=== PATIENT | male | born 2000 | race Caucasian/White ===

== ENCOUNTER 2021-02-15 09:50 | Emergency (ER) | payer BC ==
[2021-02-15 10:48] VITALS: O2SAT 98
[2021-02-15] MEDS ORDERED: Sodium Chloride 0.9% 1000 ML 1,000 ML IV STA (11:08)
[2021-02-15] MEDS ORDERED: Zofran 4 MG/2 ML VIAL IV ONE (11:08)
[2021-02-15] MEDS ORDERED: ANTIVERT 25 MG PO ONE (11:08)
[2021-02-15] MEDS ORDERED: Zofran 4 MG/2 ML VIAL ONE (11:23)
[2021-02-15 11:24] LABS: Absolute Neutrophil Ct (ANC) 2.46 (1.4-6.9); BASOPHIL % 0.4 % (0.0-0.4); Basophil (Absolute #) 0.02 (0-0.4); Eosinophil (Absolute #) 0.59 (0-0.5); Hematocrit 41.2 % (42-50); Hemoglobin 13.6 gm/dl (12.5-18.0); Lymphocyte (Absolute #) 1.86 (1.0-4.6); Lymphocytes % 34.8 % (24.0-44.0); Mean Cell Volume 83.6 fl (78-100); Mean Corpuscular Hemoglobin 27.6 pg (26-32); Mean Platelet Volume 9.5 fl (7.5-11.0); Monocyte (Absolute #) 0.41 (0.0-1.3); Monocytes % 7.7 % (0.0-12.0); Neutrophil % 46.1 % (36.0-66.0); Platelet Count 324 K/mm3 (150-450); Red Blood Count 4.93 M/mm3 (4.1-5.6); Red Cell Distribution Width 13.5 % (11.5-14.0); White Blood Count 5.3 K/mm3 (4.0-10.5)
[2021-02-15] MEDS ORDERED: Sodium Chloride 0.9% 1000 ML 1,000 ML ONE (11:24)
[2021-02-15] MEDS ORDERED: ANTIVERT 25 MG ONE (11:24)
[2021-02-15 11:39] LABS: ALBUMIN 4.3 g/dL (3.5-5.0); ALKALINE PHOSPHATASE 46 U/L (38-126); ANION GAP 12.5 MEQ/L (5-15); BLOOD UREA NITROGEN 13 mg/dL (9-20); CHLORIDE 105 mmol/L (98-107); Calcium 8.8 mg/dL (8.4-10.2); Carbon Dioxide 27 mmol/L (22-30); Creatinine 1 0.93 mg/dL (0.66-1.25); EST GLOMERULAR FILTRATION RATE > 60.0 ML/MIN; Glucose 94 mg/dL (74-106); MAGNESIUM 2.1 mg/dL (1.6-2.3); Potassium 4.4 mmol/L (3.5-5.1); SGOT/AST 21 U/L (17-59); SGPT/ALT 24 U/L (0-50); SODIUM 140 mmol/L (137-145); Total Protein 6.9 g/dL (6.3-8.2)
--- NOTE | 2021-02-15 11:41 | ERPHSYRPT ---
- History of Present Illness Time Seen by Provider: 02/15/21 10:31 Source: patient Exam Limitations: no limitations Patient Subjective Stated Complaint: Pt states that 2 days ago he passed out in the bathroom after he was done with his business and yesterday he had a migra ine, and he has diarrhea, shakiness, dizziness, cold, fingers and toes tingling Triage Nursing Assessment: Pt drove self to the ER, vitals wnl, rates head pain as 3/10, nauseous, denies vomiting today, pulses normal, A&O x3, skin n/w/d, doesn't appear to be in any distress Physician History: 20 years old healthy male presented in the ER with chief complaint of syncopal episode 2 days ago when he woke up and was walking in the bathroom and. It was brief for few seconds with unknown injury to the head. Patient reports generalized weakness since then followed by nausea, feeling dizzy lightheaded and weak all over. Patient reports earlier he was driving to work and started to feel dizzy while driving, pulled on the side until his dizziness spell was over. Reports room spinning sensation of surroundings. Denies any focal numbness or weakness but has some tingling sensation in the fingers. Denies visual disturbance, difficulty speech. Denies any chest pain palpitations or shortness of breath. Does have chronic issues with abdominal pain off and on, and vomiting diarrhea with lactose intolerance. He also reports having multiple episodes of vomiting yesterday and loose stool as well. Patient feels he is dehydrated although he is trying to keep up with his fluids. Timing/Duration: gradual onset, worse Severity: moderate Associated Symptoms: nausea, vomiting, chills, malaise, syncope, weakness, No abdominal pain Allergies/Adverse Reactions: No Known Drug Allergies Allergy (Verified 02/15/21 10:48) Travel Risk - International Travel Have you traveled outside of the country in past 3 weeks: No - Coronavirus Screening Are you exhibiting any of the following symptoms?: No Close contact with a COVID-19 positive Pt in past 14-21 Days: No - Vaccine Status Have you recieved a Covid-19 vaccination: No - Review of Systems Constitutional: Chills, Fatigue, Weakness Eyes: No Symptoms Ears, Nose, & Throat: No Symptoms Respiratory: No Symptoms Cardiac: No Symptoms Abdominal/Gastrointestinal: Nausea, Vomiting, Diarrhea Genitourinary Symptoms: No Symptoms Musculoskeletal: Myalgias Neurological: Dizziness, Headache Psychological: No Symptoms Endocrine: No Symptoms Hematologic/Lymphatic: No Symptoms Immunological/Allergic: No Symptoms - Past Medical History Pertinent Past Medical History: Yes Neurological History: No Pertinent History Cardiac History: No Pertinent History Respiratory History: Asthma Endocrine Medical History: No Pertinent History Musculoskeletal History: No Pertinent History Other Medical History: L knee scope - Past Surgical History Gastrointestinal: Appendectomy Other Surgical History: darius feet, darius knees - Social History Smoking Status: Never smoker Exposure to second hand smoke: Yes Drug Use: none Patient Lives Alone: No - Nursing Vital Signs Nursing Vital Signs: Initial Vital Signs Temperature 97.6 F 02/15/21 10:34 Pulse Rate 74 02/15/21 10:34 Respiratory Rate 17 02/15/21 10:34 Blood Pressure 108/73 02/15/21 10:34 O2 Sat by Pulse Oximetry 98 02/15/21 10:34 Pain Scale Pain Intensity 3 - Physical Exam General Appearance: no apparent distress, alert, anxiety Eye Exam: PERRL/EOMI, eyes nml inspection Ears, Nose, Throat Exam: normal ENT inspection, TMs normal, pharynx normal Neck Exam: normal inspection, non-tender, supple, full range of motion Respiratory Exam: normal breath sounds, lungs clear Cardiovascular Exam: regular rate/rhythm, normal heart sounds Gastrointestinal/Abdomen Exam: soft, normal bowel sounds, No tenderness Back Exam: normal inspection, normal range of motion, No CVA tenderness Extremity Exam: normal inspection, normal range of motion, pelvis stable Neurologic Exam: alert, oriented x 3, cooperative, certified physician assistant II-XII nml as tested, normal mood/affect, nml cerebellar function, nml station & gait, sensation nml, No motor deficits, No sensory deficit Skin Exam: normal color SpO2 Interpretation: normal SpO2: 98 O2 Delivery: Room Air Ordered Tests: Active Orders 24 hr Category Date Time Status EKG-ER Only STAT Care 02/15/21 11:08 Active IV Insertion STAT Care 02/15/21 11:08 Active Orthostatic Vital Signs STAT Care 02/15/21 11:08 Active CHEST 1 VIEW (PORTABLE) Stat Exams 02/15/21 11:09 Completed HEAD WITHOUT CONTRAST [CT] Stat Exams 02/15/21 11:09 Completed CBC W DIFF Stat Lab 02/15/21 11:22 Completed CMP Stat Lab 02/15/21 11:22 Completed Lactic Acid Stat Lab 02/15/21 11:08 Completed MAGNESIUM Stat Lab 02/15/21 11:22 Completed TROPONIN Q3H Lab 02/15/21 11:22 Completed TROPONIN Q3H Lab 02/15/21 14:15 Ordered TROPONIN Q3H Lab 02/15/21 17:15 Ordered TROPONIN Q3H Lab 02/15/21 20:15 Ordered TROPONIN Q3H Lab 02/15/21 23:15 Ordered UA W/RFX UR CULTURE Stat Lab 02/15/21 12:08 Received Urine Triage Profile Stat Lab 02/15/21 12:08 Received Medication Summary Discontinued Medications Generic Name Dose Route Start Last Admin Trade Name Freq PRN Reason Stop Dose Admin Sodium Chloride 1,000 mls @ 999 mls/hr 02/15/21 11:08 02/15/21 12:58 Sodium Chloride 0.9% 1000 Ml IV 02/15/21 12:08 Infused .Q1H1M STA Infusion Sodium Chloride Confirm 02/15/21 11:24 Sodium Chloride 0.9% 1000 Ml Administered 02/15/21 11:25 Dose 1,000 mls @ ud .ROUTE .STK-MED ONE Meclizine HCl 25 mg 02/15/21 11:08 02/15/21 11:30 Antivert 25 Mg PO 02/15/21 11:09 25 mg STAT ONE Administration Meclizine HCl Confirm 02/15/21 11:24 Antivert 25 Mg Administered 02/15/21 11:25 Dose 25 mg .ROUTE .STK-MED ONE Ondansetron HCl 4 mg 02/15/21 11:08 02/15/21 11:28 Zofran 4 Mg/2 Ml Vial IV 02/15/21 11:09 4 mg STAT ONE Administration Ondansetron HCl Confirm 02/15/21 11:23 Zofran 4 Mg/2 Ml Vial Administered 02/15/21 11:24 Dose 4 mg .ROUTE .STK-MED ONE Lab/Rad Data: Laboratory Result Diagrams 02/15/21 11:22 02/15/21 11:22 Laboratory Results 02/15/21 02/15/21 02/15/21 Range/Units 11:22 11:22 11:22 WBC 5.3 (4.0-10.5) K/mm3 RBC 4.93 (4.1-5.6) M/mm3 Hgb 13.6 (12.5-18.0) gm/dl Hct 41.2 L (42-50) % MCV 83.6 (78-100) fl MCH 27.6 (26-32) pg MCHC 33.0 (32-36) g/dl RDW 13.5 (11.5-14.0) % Plt Count 324 (150-450) K/mm3 MPV 9.5 (7.5-11.0) fl Gran % 46.1 (36.0-66.0) % Eos # (Auto) 0.59 H (0-0.5) Absolute Lymphs (auto) 1.86 (1.0-4.6) Absolute Monos (auto) 0.41 (0.0-1.3) Lymphocytes % 34.8 (24.0-44.0) % Monocytes % 7.7 (0.0-12.0) % Eosinophils % 11.0 H (0.00-5.0) % Basophils % 0.4 (0.0-0.4) % Absolute Granulocytes 2.46 (1.4-6.9) Basophils # 0.02 (0-0.4) Sodium 140 (137-145) mmol/L Potassium 4.4 (3.5-5.1) mmol/L Chloride 105 (98-107) mmol/L Carbon Dioxide 27 (22-30) mmol/L Anion Gap 12.5 (5-15) MEQ/L BUN 13 (9-20) mg/dL Creatinine 0.93 (0.66-1.25) mg/dL Estimated GFR > 60.0 ML/MIN Glucose 94 (74-106) mg/dL Lactic Acid (0.4-2.0) Calcium 8.8 (8.4-10.2) mg/dL Magnesium 2.1 (1.6-2.3) mg/dL Total Bilirubin 0.40 (0.2-1.3) mg/dL AST 21 (17-59) U/L ALT 24 (0-50) U/L Alkaline Phosphatase 46 (38-126) U/L Troponin I < 0.012 (0.000-0.034) ng/mL Serum Total Protein 6.9 (6.3-8.2) g/dL Albumin 4.3 (3.5-5.0) g/dL 02/15/21 Range/Units 11:08 WBC (4.0-10.5) K/mm3 RBC (4.1-5.6) M/mm3 Hgb (12.5-18.0) gm/dl Hct (42-50) % MCV (78-100) fl MCH (26-32) pg MCHC (32-36) g/dl RDW (11.5-14.0) % Plt Count (150-450) K/mm3 MPV (7.5-11.0) fl Gran % (36.0-66.0) % Eos # (Auto) (0-0.5) Absolute Lymphs (auto) (1.0-4.6) Absolute Monos (auto) (0.0-1.3) Lymphocytes % (24.0-44.0) % Monocytes % (0.0-12.0) % Eosinophils % (0.00-5.0) % Basophils % (0.0-0.4) % Absolute Granulocytes (1.4-6.9) Basophils # (0-0.4) Sodium (137-145) mmol/L Potassium (3.5-5.1) mmol/L Chloride (98-107) mmol/L Carbon Dioxide (22-30) mmol/L Anion Gap (5-15) MEQ/L BUN (9-20) mg/dL Creatinine (0.66-1.25) mg/dL Estimated GFR ML/MIN Glucose (74-106) mg/dL Lactic Acid 1.0 (0.4-2.0) Calcium (8.4-10.2) mg/dL Magnesium (1.6-2.3) mg/dL Total Bilirubin (0.2-1.3) mg/dL AST (17-59) U/L ALT (0-50) U/L Alkaline Phosphatase (38-126) U/L Troponin I (0.000-0.034) ng/mL Serum Total Protein (6.3-8.2) g/dL Albumin (3.5-5.0) g/dL - Progress Progress: improved, re-examined Progress Note: 02/15/21 13:55 20 years old is evaluated for dizziness/lightheadedness after having a syncopal episode with a fall. Nonfocal neuro exam throughout stay in the ER. EKG showed sinus rhythm with no acute ST elevations. Negative troponin, unremarkable chemistries. Chest x-ray negative. I have obtained CT head because of his fall and syncopal episode and is negative. I believe patient did hit his head with the fall and has postconcussion symptoms. Also some element of vertigo peripheral but not central. Patient has chronic nausea vomiting and diarrhea, w ill give Zofran for symptomatic relief and recommended increase hydration. Discussed signs symptoms of worsening needing return to ER which he seems understanding. Counseled pt/family regarding: lab results, diagnosis, need for follow-up, rad results, smoking cessation - Departure Departure Disposition: Home Clinical Impression: Post concussion syndrome, General weakness Condition: Stable Critical Care Time: No Referrals: VICTOR MANUEL YEPEZ MD [Primary Care Provider] - (1-2 days for reevaluation) Instructions: Vertigo (a Type of Dizziness) (DC), Postconcussion Syndrome (DC) Additional Instructions: Drink plenty of fluids. Take Tylenol/ibuprofen as needed. Take Zofran as needed. Follow-up with primary care for reevaluation. Return to ER for any worsening. Prescriptions: Ondansetron ODT 4 MG [Zofran Odt 4 mg] 4 mg PO Q6H PRN PRN #10 tab.rapdis PRN Reason: Vomiting
--- NOTE | 2021-02-15 11:44 | XRAY ---
Indication: Dizziness. Comparison: February 26, 2016. Portable chest again demonstrates normal heart, lungs, and bony thorax.
--- NOTE | 2021-02-15 11:52 | XRAY ---
Indication: Nausea and vomiting. Multiple contiguous axial images obtained through the head without contrast. Comparison: None Normal appearing brain parenchyma, ventricles, and bony calvarium. Visualized paranasal sinuses and mastoid air cells are clear. Impression: Normal CT head without contrast exam.
[2021-02-15 13:37] LABS: Appearance CLEAR (CLEAR); Bilirubin NEGATIVE (NEGATIVE); Blood NEGATIVE Ery/ul (0-5); Glucose NEGATIVE (NEGATIVE); Ketones NEGATIVE (NEGATIVE); Leukocyte Esterase NEGATIVE (NEGATIVE); Mucus SLIGHT /HPF (NEGATIVE); Nitrite NEGATIVE (NEGATIVE); Protein,Urine Dip NEGATIVE (Negative); Specific Gravity 1.026 (1.005-1.025); Urobilinogen NEGATIVE mg/dL (0-1)
[2021-02-15 14:05] LABS: Amphetamine,Urine NEGATIVE (NEGATIVE); Barbiturate,Urine NEGATIVE (NEGATIVE); Benzodiazepine,Urine NEGATIVE (NEGATIVE); Cocaine,Urine NEGATIVE (NEGATIVE); Methadone,Urine NEGATIVE (NEGATIVE); Opiate,Urine NEGATIVE (NEGATIVE); PCP,Urine NEGATIVE (NEGATIVE); THC,Urine NEGATIVE (NEGATIVE)
[2021-02-15 14:07] VITALS: BP 96/65; PULSE 83
== END 2021-02-15 14:10 | disposition home or self-care (01) ==
LOC: ED 09:50
DX: F07.81 Postconcussional syndrome (principal); R53.1 Weakness; W18.39XA Other fall on same level, initial encounter; Y93.89 Activity, other specified; Y92.488 Other paved roadways as the place of occurrence of the external cause; Y99.8 Other external cause status
CPT/HCPCS: 36000; 36415; 70450; 71045; 80053; 80307; 81001; 83605; 83735; 84484; 85025; 93005; 96360; 96374; 99284; J2405; A9270-GY

== ENCOUNTER 2022-02-28 06:36 | Emergency (ER) | payer BC ==
[2022-02-28] MEDS ORDERED: solu-MEDROL 125 MG, Sterile H2O 10 ml 2 ML IV ONE ×2 (07:00)
[2022-02-28] MEDS ORDERED: solu-MEDROL ONE (07:01)
[2022-02-28] MEDS ORDERED: Sterile H2O 10 ml IJ ONE (07:01)
[2022-02-28] MEDS ORDERED: Zofran 4 MG/2 ML VIAL IV ONE (07:11)
[2022-02-28] MEDS ORDERED: DUONEB 0.5-3 MG/3 ml Neb IH ONE ×2 (07:11→07:51)
--- NOTE | 2022-02-28 07:18 | ERPHSYRPT ---
- History of Present Illness Time Seen by Provider: 02/28/22 07:05 Source: patient Exam Limitations: no limitations Patient Subjective Stated Complaint: pt states he has been coughing and SOB for two days. states he ahs asthma and it is hard to breath, states the back of his head hurts from coughing 2/10 pain. Triage Nursing Assessment: pt is alert and oriented, cough intermittent and productive, sats 93% on room air. pt is alert and oriented, states he is having trouble breathing the last two days. Physician History: This is a 21-year-old male patient of Dr. Yepez who has a history of asthma and presents with 2-day history of worsening cough and shortness of breath. He is noted some wheezing as well. He denies chest pain. He presents with no nausea vomiting or diarrhea. Has no abdominal pain. He has not had fever. He does not have albuterol inhaler or nebulizer at home. Timing/Duration: day(s) (2) Activities at Onset: none Severity of Dyspnea-Max: moderate Severity of Dyspnea-Current: moderate Possible Cause: occasional episodes Modifying Factors: Improves With: coughing Associated Symptoms: anxiety, cough, wheezing, productive cough, No chest pain/discomfort Allergies/Adverse Reactions: No Known Drug Allergies Allergy (Verified 02/15/21 10:48) Hx Tetanus, Diphtheria Vaccination/Date Given: No Hx Influenza Vaccination/Date Given: No Hx Pneumococcal Vaccination/Date Given: No Immunizations Up to Date: No Travel Risk - International Travel Have you traveled outside of the country in past 3 weeks: No - Coronavirus Screening Are you exhibiting any of the following symptoms?: Yes Symptoms: Cough: New Onset, Shortness of Breath - Vaccine Status Have you recieved a Covid-19 vaccination: No - Review of Systems Constitutional: No Symptoms Eyes: No Symptoms Ears, Nose, & Throat: No Symptoms Respiratory: Cough, Dyspnea, Wheezing Cardiac: No Symptoms Abdominal/Gastrointestinal: No Symptoms Genitourinary Symptoms: No Symptoms Musculoskeletal: No Symptoms Skin: No Symptoms Neurological: No Symptoms Psychological: No Symptoms Endocrine: No Symptoms Hematologic/Lymphatic: No Symptoms Immunological/Allergic: No Symptoms All Other Systems: Reviewed and Negative - Past Medical History Pertinent Past Medical History: Yes Neurological History: No Pertinent History Cardiac History: No Pertinent History Respiratory History: Asthma Endocrine Medical History: No Pertinent History Musculoskeletal History: No Pertinent History Other Medical History: L knee scope - Past Surgical History Gastrointestinal: Appendectomy Other Surgical History: darius feet, darius knees - Social History Smoking Status: Never smoker Exposure to second hand smoke: Yes Drug Use: none Patient Lives Alone: No - Nursing Vital Signs Nursing Vital Signs: Initial Vital Signs Temperature 98.0 F 02/28/22 06:38 Pulse Rate 100 H 02/28/22 06:38 Respiratory Rate 32 H 02/28/22 06:38 Blood Pressure 124/85 02/28/22 06:38 O2 Sat by Pulse Oximetry 93 L 02/28/22 06:38 Pain Scale Pain Intensity 2 - Physical Exam General Appearance: mild distress, alert, anxiety Eye Exam: PERRL/EOMI, eyes nml inspection Ears, Nose, Throat Exam: hearing grossly normal, normal ENT inspection, normal pharynx Neck Exam: normal inspection, non-tender, supple, full range of motion Respiratory Exam: respiratory distress, airway intact (Mild), wheezing, No chest tenderness Cardiovascular/Chest Exam: normal heart sounds, regular rate/rhythm, murmur Abdominal/Gastrointestinal Exam: soft, normal bowel sounds, No tenderness Rectal Exam: not done Extremity Exam: non-tender, normal range of motion, normal inspection Neurologic Exam: alert, oriented x 3, cooperative, 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, normal mood/affect, nml cerebellar function, nml station & gait, sensation nml Skin Exam: normal color, warm, dry Lymphatic Exam: No adenopathy SpO2 Interpretation: borderline oxygenation SpO2: 93 O2 Delivery: Room Air - Course Nursing assessment & vital signs reviewed: Yes Ordered Tests: Active Orders 24 hr Category Date Time Status Corrugated Sheet Material Sheeter STAT Care 02/28/22 07:18 Active IV Insertion STAT Care 02/28/22 07:18 Active Pulse Oximetry (ED) STAT Care 02/28/22 07:18 Active CHEST 1 VIEW (PORTABLE) Stat Exams 02/28/22 07:18 Completed BLOOD CULTURE Stat Lab 02/28/22 07:26 Received CBC W DIFF Stat Lab 02/28/22 06:50 Completed CMP Stat Lab 02/28/22 06:50 Completed D-DIMER QUANTITATIVE Stat Lab 02/28/22 06:50 Completed Lactic Acid Stat Lab 02/28/22 07:18 Completed Respiratory Therapy Assessment DAILY RT 02/28/22 07:44 Active Medication Summary Discontinued Medications Generic Name Dose Route Start Last Admin Trade Name Marco PRN Reason Stop Dose Admin Albuterol/Ipratropium Confirm 02/28/22 07:11 Ipratropium/Albuterol Sulfate 3 Ml Ampul.Neb Administered 02/28/22 07:12 Dose 3 ml IH .STK-MED ONE Albuterol/Ipratropium 3 ml 02/28/22 07:51 02/28/22 07:30 Ipratropium/Albuterol Sulfate 3 Ml Ampul.Neb IH 02/28/22 07:52 3 ml STAT ONE Administration Methylprednisolone Sodium 0 mg 02/28/22 07:00 02/28/22 07:02 Succinate 125 mg/ Sterile IV 02/28/22 07:01 125 mg Water 2 ml STAT ONE Administration Methylprednisolone Sodium Succinate Confirm 02/28/22 07:01 Methylprednis Sod Succ 125 Mg/2 Ml Vial Administered 02/28/22 07:02 Dose 125 mg .ROUTE .STK-MED ONE Ondansetron HCl 4 mg 02/28/22 07:11 02/28/22 07:23 Ondansetron Hcl 4 Mg/2 Ml Vial IV 02/28/22 07:12 4 mg STAT ONE Administration Ondansetron HCl Confirm 02/28/22 07:19 Ondansetron Hcl 4 Mg/2 Ml Vial Administered 02/28/22 07:20 Dose 4 mg .ROUTE .STK-MED ONE Sterile Water Confirm 02/28/22 07:01 Water For Injection,Sterile 10 Ml Vial Administered 02/28/22 07:02 Dose 10 ml IJ .STK-MED ONE Lab/Rad Data: Laboratory Result Diagrams 02/28/22 06:50 02/28/22 06:50 Laboratory Results 02/28/22 02/28/22 02/28/22 Range/Units 07:18 06:50 06:50 WBC (4.0-10.5) x10^3/uL RBC (4.1-5.6) x10^6/uL Hgb (12.5-18.0) g/dL Hct (42-50) % MCV (78-100) fL MCH (26-32) pg MCHC (32-36) g/dL RDW (11.5-14.0) % Plt Count (150-450) x10^3/uL MPV (7.5-11.0) fL Gran % (36.0-66.0) % Immature Gran % (Auto) (0.00-0.4) % Nucleat RBC Rel Count (0.00-0.1) % Eos # (Auto) (0-0.5) x10^3/uL Immature Gran # (Auto) (0.00-0.03) x10^3u/L Absolute Lymphs (auto) (1.0-4.6) x10^3/uL Absolute Monos (auto) (0.0-1.3) x10^3/uL Absolute Nucleated RBC (0.00-0.01) x10^3u/L Lymphocytes % (24.0-44.0) % Monocytes % (0.0-12.0) % Eosinophils % (0.00-5.0) % Basophils % (0.0-0.4) % Absolute Granulocytes (1.4-6.9) x10^3/uL Basophils # (0-0.4) x10^3/uL D-Dimer < 0.19 (0.0-0.50) ng/mL Sodium 142 (137-145) mmol/L Potassium 4.4 (3.5-5.1) mmol/L Chloride 106 (98-107) mmol/L Carbon Dioxide 26 (22-30) mmol/L Anion Gap 14.4 (5-15) MEQ/L BUN 16 (9-20) mg/dL Creatinine 0.95 (0.66-1.25) mg/dL Estimated GFR > 60.0 ML/MIN Glucose 100 (74-106) mg/dL Lactic Acid 1.0 (0.4-2.0) Calcium 9.1 (8.4-10.2) mg/dL Total Bilirubin 0.70 (0.2-1.3) mg/dL AST 28 (17-59) U/L ALT 31 (0-50) U/L Alkaline Phosphatase 44 (38-126) U/L Serum Total Protein 7.2 (6.3-8.2) g/dL Albumin 4.4 (3.5-5.0) g/dL 02/28/22 Range/Units 06:50 WBC 10.3 (4.0-10.5) x10^3/uL RBC 5.28 (4.1-5.6) x10^6/uL Hgb 14.6 (12.5-18.0) g/dL Hct 44.1 (42-50) % MCV 83.5 (78-100) fL MCH 27.7 (26-32) pg MCHC 33.1 (32-36) g/dL RDW 12.4 (11.5-14.0) % Plt Count 336 (150-450) x10^3/uL MPV 9.6 (7.5-11.0) fL Gran % 53.7 (36.0-66.0) % Immature Gran % (Auto) 0.3 (0.00-0.4) % Nucleat RBC Rel Count 0.0 (0.00-0.1) % Eos # (Auto) 1.34 H (0-0.5) x10^3/uL Immature Gran # (Auto) 0.03 (0.00-0.03) x10^3u/L Absolute Lymphs (auto) 2.53 (1.0-4.6) x10^3/uL Absolute Monos (auto) 0.82 (0.0-1.3) x10^3/uL Absolute Nucleated RBC 0.00 (0.00-0.01) x10^3u/L Lymphocytes % 24.5 (24.0-44.0) % Monocytes % 7.9 (0.0-12.0) % Eosinophils % 13.0 H (0.00-5.0) % Basophils % 0.6 (0.0-0.4) % Absolute Granulocytes 5.56 (1.4-6.9) x10^3/uL Basophils # 0.06 (0-0.4) x10^3/uL D-Dimer (0.0-0.50) ng/mL Sodium (137-145) mmol/L Potassium (3.5-5.1) mmol/L Chloride (98-107) mmol/L Carbon Dioxide (22-30) mmol/L Anion Gap (5-15) MEQ/L BUN (9-20) mg/dL Creatinine (0.66-1.25) mg/dL Estimated GFR ML/MIN Glucose (74-106) mg/dL Lactic Acid (0.4-2.0) Calcium (8.4-10.2) mg/dL Total Bilirubin (0.2-1.3) mg/dL AST (17-59) U/L ALT (0-50) U/L Alkaline Phosphatase (38-126) U/L Serum Total Protein (6.3-8.2) g/dL Albumin (3.5-5.0) g/dL - Progress Progress: improved, re-examined Air Movement: good Progress Note: 02/28/22 09:07 Chest x-ray shows no acute cardiopulmonary process. Blood Culture(s) Obtained: No Antibiotics given: No Counseled pt/family regarding: lab results, diagnosis, need for follow-up, rad results - Departure Departure Disposition: Home Clinical Impression: Exacerbation of asthma Condition: Stable Critical Care Time: No Referrals: VICTOR MANUEL YEPEZ MD [Primary Care Provider] - Follow up/PCP as directed Additional Instructions: Drink plenty of fluids. Take your medication as prescribed. Follow-up with your primary care physician for further evaluation and management. Prescriptions: Prednisone 10 mg [Deltasone 10 mg] 10 mg PO TID #12 tablet Albuterol 8 gm Mdi Hfa [Ventolin Hfa MDI] 8 gm IH Q4H #1 unit
[2022-02-28] MEDS ORDERED: Zofran 4 MG/2 ML VIAL ONE (07:19)
[2022-02-28 07:39] LABS: Absolute Neutrophil Ct (ANC) 5.56 x10^3/uL (1.4-6.9); Basophil (Absolute #) 0.06 x10^3/uL (0-0.4); Eosinophil (Absolute #) 1.34 x10^3/uL (0-0.5); Hematocrit 44.1 % (42-50); Hemoglobin 14.6 g/dL (12.5-18.0); Lymphocyte (Absolute #) 2.53 x10^3/uL (1.0-4.6); Lymphocytes % 24.5 % (24.0-44.0); Mean Cell Volume 83.5 fL (78-100); Mean Corpuscular Hemoglobin 27.7 pg (26-32); Mean Corpuscular Hgb Concent. 33.1 g/dL (32-36); Mean Platelet Volume 9.6 fL (7.5-11.0); Monocyte (Absolute #) 0.82 x10^3/uL (0.0-1.3); Monocytes % 7.9 % (0.0-12.0); Neutrophil % 53.7 % (36.0-66.0); Platelet Count 336 x10^3/uL (150-450); Red Blood Count 5.28 x10^6/uL (4.1-5.6); Red Cell Distribution Width 12.4 % (11.5-14.0); White Blood Count 10.3 x10^3/uL (4.0-10.5)
[2022-02-28 07:52] LABS: ALBUMIN 4.4 g/dL (3.5-5.0); ALKALINE PHOSPHATASE 44 U/L (38-126); ANION GAP 14.4 MEQ/L (5-15); BLOOD UREA NITROGEN 16 mg/dL (9-20); CHLORIDE 106 mmol/L (98-107); Calcium 9.1 mg/dL (8.4-10.2); Carbon Dioxide 26 mmol/L (22-30); Creatinine 1 0.95 mg/dL (0.66-1.25); EST GLOMERULAR FILTRATION RATE > 60.0 ML/MIN; Glucose 100 mg/dL (74-106); Potassium 4.4 mmol/L (3.5-5.1); SGOT/AST 28 U/L (17-59); SGPT/ALT 31 U/L (0-50); SODIUM 142 mmol/L (137-145); Total Protein 7.2 g/dL (6.3-8.2)
[2022-02-28 07:53] VITALS: BP 117/77
--- NOTE | 2022-02-28 09:01 | XRAY ---
Indication: Cough, short of breath, and wheezing. Comparison: February 15, 2021. Portable chest continues to demonstrate normal heart, lungs, and bony thorax.
[2022-02-28 09:27] VITALS: PULSE 78; O2SAT 97
[2022-02-28 09:57] LABS: INFLUENZA A NEGATIVE (NEGATIVE); INFLUENZA B NEGATIVE (NEGATIVE); RESPIRATORY SYNCTIAL VIRUS NEGATIVE (Negative); SARS-CoV-2 Xpert Express NEGATIVE (NEGATIVE)
== END 2022-02-28 10:08 | disposition home or self-care (01) ==
LOC: ED 06:36
DX: J45.901 Unspecified asthma with (acute) exacerbation (principal); R05.1 Acute cough; R06.02 Shortness of breath; Z79.52 Long term (current) use of systemic steroids
CPT/HCPCS: 0241U; 36000; 36415; 71045; 80053; 83605; 85025; 85379; 87040; 93005; 93041; 94640; 94760; 96374; 96375; 99284; J2405; J2930; A9270-GY

== ENCOUNTER 2023-08-25 02:40 | Emergency (ER) | payer BC ==
[2023-08-25] MEDS ORDERED: Sodium Chloride 0.9% 1000 ML 1,000 ML IV STA (03:13)
[2023-08-25 03:14] VITALS: RESP 18; TEMP 100.7
[2023-08-25] MEDS ORDERED: TORAdol 30 mg Injection IV ONE (03:14)
[2023-08-25] MEDS ORDERED: TORAdol 30 mg Injection ONE (03:18)
[2023-08-25] MEDS ORDERED: Sodium Chloride 0.9% 1000 ML 1,000 ML ONE (03:18)
--- NOTE | 2023-08-25 03:19 | ERPHSYRPT ---
- History of Present Illness Time Seen by Provider: 08/25/23 03:04 Source: patient Exam Limitations: no limitations Physician History: Since yesterday pt has had a constant generalized headache up to 10/10 in severity, dizziness(off balance), diaphoresis, diarrhea, fever up to 102 degrees, nasal congestion, cough productive of yellow phlegm and generalized body aches. Allergies/Adverse Reactions: No Known Drug Allergies Allergy (Verified 08/25/23 02:49) Hx Tetanus, Diphtheria Vaccination/Date Given: No Hx Influenza Vaccination/Date Given: No Hx Pneumococcal Vaccination/Date Given: No Travel Risk - Vaccine Status Have you recieved a Covid-19 vaccination: No - Review of Systems Constitutional: Fever Ears, Nose, & Throat: Nose Congestion Respiratory: Cough, No Dyspnea Cardiac: No Chest Pain Abdominal/Gastrointestinal: Diarrhea, No Abdominal Pain, No Nausea, No Vomiting Genitourinary Symptoms: No Dysuria Neurological: Dizziness, Headache - Past Medical History Pertinent Past Medical History: Yes Neurological History: No Pertinent History Cardiac History: No Pertinent History Respiratory History: Asthma Endocrine Medical History: No Pertinent History Musculoskeletal History: No Pertinent History Other Medical History: L knee scope - Past Surgical History Gastrointestinal: Appendectomy Other Surgical History: darius feet, darius knees - Social History Smoking Status: Never smoker Exposure to second hand smoke: Yes Drug Use: none Patient Lives Alone: No - Nursing Vital Signs Nursing Vital Signs: Initial Vital Signs Temperature 100.7 F 08/25/23 02:50 Pulse Rate 113 H 08/25/23 02:50 Respiratory Rate 18 08/25/23 02:50 Blood Pressure 141/74 08/25/23 02:50 O2 Sat by Pulse Oximetry 97 08/25/23 02:50 Pain Scale Pain Intensity 9 - Physical Exam General Appearance: alert Eye Exam: PERRL/EOMI Ears, Nose, Throat Exam: TMs normal, pharyngeal erythema Neck Exam: normal inspection Respiratory Exam: normal breath sounds, airway intact Cardiovascular Exam: normal heart sounds Gastrointestinal/Abdomen Exam: soft, normal bowel sounds Back Exam: normal inspection Extremity Exam: No pedal edema Neurologic Exam: alert, cooperative, normal mood/affect, sensation nml, No motor weakness Skin Exam: warm, dry SpO2 Interpretation: normal SpO2: 97 O2 Delivery: Room Air - Radiology Exams Chest X-ray Interpretation: Interpreted by me, No Pneumonia - CT Exams Head CT Interpretation: Tele-radiologist Report (Bilateral maxillary, ethmoid and sphenoid sinusitis. Otherwise unremarkable non-enhanced CT study for the brain.) Ordered Tests: Active Orders 24 hr Category Date Time Status CHEST 2 VIEWS (PA AND LAT) Stat Exams 08/25/23 03:14 Taken HEAD WITHOUT CONTRAST [CT] Stat Exams 08/25/23 03:16 Completed CBC W DIFF Stat Lab 08/25/23 03:33 Completed CMP Stat Lab 08/25/23 03:33 Completed Lactic Acid Stat Lab 08/25/23 03:40 Completed MAGNESIUM Stat Lab 08/25/23 03:33 Completed MONO SCREEN Stat Lab 08/25/23 03:33 Completed UA W/RFX UR CULTURE Stat Lab 08/25/23 04:58 Completed Medication Summary Generic Name Dose Route Start Last Admin Trade Name Freq PRN Reason Stop Dose Admin Ceftriaxone Sodium/Dextrose 1 g in 50 mls @ 100 mls/hr 08/25/23 05:08 Rocephin 1 Gm-D5w 50 Ml Bag IV 08/25/23 05:37 STAT STA Discontinued Medications Generic Name Dose Route Start Last Admin Trade Name Freq PRN Reason Stop Dose Admin Azithromycin 500 mg 08/25/23 05:06 Azithromycin 250 Mg Tablet PO 08/25/23 05:07 STAT ONE Sodium Chloride 1,000 mls @ 999 mls/hr 08/25/23 03:13 08/25/23 04:59 Sodium Chloride 0.9% 1000 Ml IV 08/25/23 04:13 Infused .Q1H1M STA Infusion Sodium Chloride Confirm 08/25/23 03:18 Sodium Chloride 0.9% 1000 Ml Administered 08/25/23 03:19 Dose 1,000 mls @ ud .ROUTE .STK-MED ONE Ketorolac Tromethamine 30 mg 08/25/23 03:14 08/25/23 03:45 Ketorolac Tromethamine 30 Mg/Ml Inj IV 08/25/23 03:15 30 mg STAT ONE Administration Ketorolac Tromethamine Confirm 08/25/23 03:18 Ketorolac Tromethamine 30 Mg/Ml Inj Administered 08/25/23 03:19 Dose 30 mg .ROUTE .STK-MED ONE Lab/Rad Data: Laboratory Result Diagrams 08/25/23 03:33 08/25/23 03:33 Laboratory Results 08/25/23 08/25/2323 Range/Units 04:58 03:40 03:34 WBC (4.0-10.5) x10^3/uL RBC (4.1-5.6) x10^6/uL Hgb (12.5-18.0) g/dL Hct (42-50) % MCV (78-100) fL MCH (26-32) pg MCHC (32-36) g/dL RDW (11.5-14.0) % Plt Count (150-450) x10^3/uL MPV (7.5-11.0) fL Gran % (36.0-66.0) % Immature Gran % (Auto) (0.00-0.4) % Nucleat RBC Rel Count (0.00-0.1) % Eos # (Auto) (0-0.5) x10^3/uL Immature Gran # (Auto) (0.00-0.03) x10^3u/L Absolute Lymphs (auto) (1.0-4.6) x10^3/uL Absolute Monos (auto) (0.0-1.3) x10^3/uL Absolute Nucleated RBC (0.00-0.01) x10^3u/L Lymphocytes % (24.0-44.0) % Monocytes % (0.0-12.0) % Eosinophils % (0.00-5.0) % Basophils % (0.0-0.4) % Absolute Granulocytes (1.4-6.9) x10^3/uL Basophils # (0-0.4) x10^3/uL Sodium (137-145) mmol/L Potassium (3.5-5.1) mmol/L Chloride (98-107) mmol/L Carbon Dioxide (22-30) mmol/L Anion Gap (5-15) MEQ/L BUN (9-20) mg/dL Creatinine (0.66-1.25) mg/dL Estimated GFR ML/MIN Glucose (74-106) mg/dL Lactic Acid 1.5 (0.4-2.0) Calcium (8.4-10.2) mg/dL Magnesium (1.6-2.3) mg/dL Total Bilirubin (0.2-1.3) mg/dL AST (17-59) U/L ALT (0-50) U/L Alkaline Phosphatase (38-126) U/L Serum Total Protein (6.3-8.2) g/dL Albumin (3.5-5.0) g/dL Urine Color Yellow (Yellow) Urine Appearance Clear (Clear) Urine pH 6.0 (4.6-8.0) Ur Specific Pe Ell >=1.030 A (1.005-1.030) Urine Protein Trace A (Negative) Urine Glucose (UA) Negative (Negative) mg/dL Urine Ketones Trace A (Negative) Urine Blood Negative (Negative) Urine Nitrite Negative (Negative) Urine Bilirubin Negative (Negative) Urine Urobilinogen 1.0 A (0.2) mg/dL Ur Leukocyte Esterase Negative (Negative) U Hyaline Cast (Auto) NONE SEEN (0-2) /LPF Urine Microscopic RBC 0-2 (0-5) /HPF Urine Microscopic WBC 0-2 (0-5) /HPF Ur Epithelial Cells None Seen (None Seen) /HPF Urine Bacteria None Seen (None Seen) /HPF Urine Culture Reflexed NO (NO) Monoscreen (NEGATIVE) Influenza Type A Ag POSITIVE (NEGATIVE) Influenza Type B Ag NEGATIVE (NEGATIVE) RSV (PCR) NEGATIVE (NEGATIVE) SARS-CoV-2 (PCR) NEGATIVE (NEGATIVE) Group A Strep Antibody (NEGATIVE) 08/25/23 08/25/23 08/25/23 Range/Units 03:34 03:33 03:33 WBC (4.0-10.5) x10^3/uL RBC (4.1-5.6) x10^6/uL Hgb (12.5-18.0) g/dL Hct (42-50) % MCV (78-100) fL MCH (26-32) pg MCHC (32-36) g/dL RDW (11.5-14.0) % Plt Count (150-450) x10^3/uL MPV (7.5-11.0) fL Gran % (36.0-66.0) % Immature Gran % (Auto) (0.00-0.4) % Nucleat RBC Rel Count (0.00-0.1) % Eos # (Auto) (0-0.5) x10^3/uL Immature Gran # (Auto) (0.00-0.03) x10^3u/L Absolute Lymphs (auto) (1.0-4.6) x10^3/uL Absolute Monos (auto) (0.0-1.3) x10^3/uL Absolute Nucleated RBC (0.00-0.01) x10^3u/L Lymphocytes % (24.0-44.0) % Monocytes % (0.0-12.0) % Eosinophils % (0.00-5.0) % Basophils % (0.0-0.4) % Absolute Granulocytes (1.4-6.9) x10^3/uL Basophils # (0-0.4) x10^3/uL Sodium (137-145) mmol/L Potassium (3.5-5.1) mmol/L Chloride (98-107) mmol/L Carbon Dioxide (22-30) mmol/L Anion Gap (5-15) MEQ/L BUN (9-20) mg/dL Creatinine (0.66-1.25) mg/dL Estimated GFR ML/MIN Glucose (74-106) mg/dL Lactic Acid (0.4-2.0) Calcium (8.4-10.2) mg/dL Magnesium 1.6 (1.6-2.3) mg/dL Total Bilirubin (0.2-1.3) mg/dL AST (17-59) U/L ALT (0-50) U/L Alkaline Phosphatase (38-126) U/L Serum Total Protein (6.3-8.2) g/dL Albumin (3.5-5.0) g/dL Urine Color (Yellow) Urine Appearance (Clear) Urine pH (4.6-8.0) Ur Specific Pe Ell (1.005-1.030) Urine Protein (Negative) Urine Glucose (UA) (Negative) mg/dL Urine Ketones (Negative) Urine Blood (Negative) Urine Nitrite (Negative) Urine Bilirubin (Negative) Urine Urobilinogen (0.2) mg/dL Ur Leukocyte Esterase (Negative) U Hyaline Cast (Auto) (0-2) /LPF Urine Microscopic RBC (0-5) /HPF Urine Microscopic WBC (0-5) /HPF Ur Epithelial Cells (None Seen) /HPF Urine Bacteria (None Seen) /HPF Urine Culture Reflexed (NO) Monoscreen NEGATIVE (NEGATIVE) Influenza Type A Ag (NEGATIVE) Influenza Type B Ag (NEGATIVE) RSV (PCR) (NEGATIVE) SARS-CoV-2 (PCR) (NEGATIVE) Group A Strep Antibody NOT DETECTED (NEGATIVE) 08/25/23 08/25/23 Range/Units 03:33 03:33 WBC 8.0 (4.0-10.5) x10^3/uL RBC 4.78 (4.1-5.6) x10^6/uL Hgb 13.3 (12.5-18.0) g/dL Hct 39.8 L (42-50) % MCV 83.3 (78-100) fL MCH 27.8 (26-32) pg MCHC 33.4 (32-36) g/dL RDW 13.0 (11.5-14.0) % Plt Count 273 (150-450) x10^3/uL MPV 9.6 (7.5-11.0) fL Gran % 75.3 H (36.0-66.0) % Immature Gran % (Auto) 0.4 (0.00-0.4) % Nucleat RBC Rel Count 0.0 (0.00-0.1) % Eos # (Auto) 0.24 (0-0.5) x10^3/uL Immature Gran # (Auto) 0.03 (0.00-0.03) x10^3u/L Absolute Lymphs (auto) 0.69 L (1.0-4.6) x10^3/uL Absolute Monos (auto) 0.97 (0.0-1.3) x10^3/uL Absolute Nucleated RBC 0.00 (0.00-0.01) x10^3u/L Lymphocytes % 8.7 L (24.0-44.0) % Monocytes % 12.2 H (0.0-12.0) % Eosinophils % 3.0 (0.00-5.0) % Basophils % 0.4 (0.0-0.4) % Absolute Granulocytes 6.00 (1.4-6.9) x10^3/uL Basophils # 0.03 (0-0.4) x10^3/uL Sodium 135 L (137-145) mmol/L Potassium 3.4 L (3.5-5.1) mmol/L Chloride 103 (98-107) mmol/L Carbon Dioxide 21 L (22-30) mmol/L Anion Gap 14.4 (5-15) MEQ/L BUN 12 (9-20) mg/dL Creatinine 0.78 (0.66-1.25) mg/dL Estimated GFR 127.7 ML/MIN Glucose 129 H (74-106) mg/dL Lactic Acid (0.4-2.0) Calcium 9.2 (8.4-10.2) mg/dL Magnesium (1.6-2.3) mg/dL Total Bilirubin 0.40 (0.2-1.3) mg/dL AST 24 (17-59) U/L ALT 32 (0-50) U/L Alkaline Phosphatase 51 (38-126) U/L Serum Total Protein 7.0 (6.3-8.2) g/dL Albumin 4.2 (3.5-5.0) g/dL Urine Color (Yellow) Urine Appearance (Clear) Urine pH (4.6-8.0) Ur Specific Pe Ell (1.005-1.030) Urine Protein (Negative) Urine Glucose (UA) (Negative) mg/dL Urine Ketones (Negative) Urine Blood (Negative) Urine Nitrite (Negative) Urine Bilirubin (Negative) Urine Urobilinogen (0.2) mg/dL Ur Leukocyte Esterase (Negative) U Hyaline Cast (Auto) (0-2) /LPF Urine Microscopic RBC (0-5) /HPF Urine Microscopic WBC (0-5) /HPF Ur Epithelial Cells (None Seen) /HPF Urine Bacteria (None Seen) /HPF Urine Culture Reflexed (NO) Monoscreen (NEGATIVE) Influenza Type A Ag (NEGATIVE) Influenza Type B Ag (NEGATIVE) RSV (PCR) (NEGATIVE) SARS-CoV-2 (PCR) (NEGATIVE) Group A Strep Antibody (NEGATIVE) - Progress Progress: improved Progress Note: 08/25/23 05:04 Pt does not want tamiflu. Counseled pt/family regarding: lab results, diagnosis, rad results Medical Desision Making - Diagnostic Testing Diagnostic test were ordered, analyzed, and reviewed by me: Yes Radiological Interpretation: Interpreted by me, Teleradiologist Report - Departure Departure Disposition: Home Clinical Impression: Influenza A, Sinusitis, Headache Condition: Stable Critical Care Time: No Referrals: VICTOR MANUEL YEPEZ MD [Primary Care Provider] - Follow up/PCP as directed Instructions: Sinusitis, Adult (DC) Additional Instructions: Drink plenty of fluids. Follow up with private doctor tomorrow. Forms: Work/School Release Form Prescriptions: Ketorolac Trometh 10 mg Tab [TORAdol 10 MG TABLET] 10 mg PO Q8HPRN PRN #14 tablet PRN Reason: Pain Azithromycin 250 mg [Zithromax 250 MG TABLET] 250 mg PO ZPACK #6 tablet
[2023-08-25 03:36] LABS: BASOPHIL % 0.4 % (0.0-0.4); Basophil (Absolute #) 0.03 x10^3/uL (0-0.4); Eosinophil (Absolute #) 0.24 x10^3/uL (0-0.5); Hematocrit 39.8 % (42-50); Hemoglobin 13.3 g/dL (12.5-18.0); IMMATURE GRAN # 0.03 x10^3u/L (0.00-0.03); IMMATURE GRAN % 0.4 % (0.00-0.4); Lymphocyte (Absolute #) 0.69 x10^3/uL (1.0-4.6); Lymphocytes % 8.7 % (24.0-44.0); Mean Cell Volume 83.3 fL (78-100); Mean Corpuscular Hemoglobin 27.8 pg (26-32); Mean Corpuscular Hgb Concent. 33.4 g/dL (32-36); Mean Platelet Volume 9.6 fL (7.5-11.0); Monocyte (Absolute #) 0.97 x10^3/uL (0.0-1.3); Monocytes % 12.2 % (0.0-12.0); Neutrophil % 75.3 % (36.0-66.0); Platelet Count 273 x10^3/uL (150-450); Red Blood Count 4.78 x10^6/uL (4.1-5.6)
[2023-08-25 03:51] LABS: ALBUMIN 4.2 g/dL (3.5-5.0); ANION GAP 14.4 MEQ/L (5-15); BILIRUBIN,TOTAL 0.4 mg/dL (0.2-1.3); Calcium 9.2 mg/dL (8.4-10.2); Creatinine 1 0.78 mg/dL (0.66-1.25); EST GLOMERULAR FILTRATION RATE 127.7 ML/MIN; Potassium 3.4 mmol/L (3.5-5.1)
[2023-08-25 04:17] LABS: INFLUENZA B NEGATIVE (NEGATIVE); RESPIRATORY SYNCTIAL VIRUS NEGATIVE (NEGATIVE); SARS-CoV-2 Xpert Express NEGATIVE (NEGATIVE)
--- NOTE | 2023-08-25 04:18 | XRAY ---
CLINICAL HISTORY:headache COMPARISON:None. TECHNIQUE:Axial noncontrast CT scan of the brain was performed from the skull base to the high parietal region. FINDINGS: The visualized brain parenchyma shows normal appearance. No focal parenchymal abnormalities are demonstrated. Voss-white matter differentiation is maintained. No midline shifts or deformity. No intracerebral or extra axial hematoma. Normal size and configuration of the cerebral ventricles. Normal CT appearance of the posterior fossa structures namely the cerebellar hemispheres, brainstem and cerebellar peduncles. The IACs are unremarkable. The cerebello-pontine angles are clear. The pituitary gland, the pineal gland, the optic chiasm is unremarkable. The osseous structures in the skull base are unremarkable. No definite calvarium fractures. Mucosal thickening of bilateral maxillary, ethmoidal and sphenoid sinuses. IMPRESSION: Bilateral maxillary, ethmoid and sphenoid sinusitis. Otherwise, unremarkable non-enhanced CT study for the brain. Electronically Signed by: Mickey Ward MD. (08/25/2023 03:18:21 GIS GEOGRAPHER)
[2023-08-25 04:28] LABS: INFLUENZA A POSITIVE (NEGATIVE)
[2023-08-25 04:58] VITALS: BP 115/87; PULSE 92
[2023-08-25 05:02] VITALS: O2SAT 97
[2023-08-25] MEDS ORDERED: Zithromax 250 MG TABLET PO ONE (05:06)
[2023-08-25 05:08] LABS: Appearance Clear (Clear); Bacteria None Seen /HPF (None Seen); Bilirubin Negative (Negative); Blood Negative (Negative); Epithelial Cells None Seen /HPF (None Seen); Glucose, Urine Negative (Negative); Hyaline Casts NONE SEEN /LPF (0-2); Ketones Trace (Negative); Leukocyte Esterase Negative (Negative); Nitrite Negative (Negative); Protein,Urine Dip Trace (Negative); RBC 0-2 /HPF (0-5); Specific Gravity >=1.030 (1.005-1.030); WBC 0-2 /HPF (0-5)
[2023-08-25] MEDS ORDERED: ROCEPHIN 1 Gm-D5w 50 ml Bag** 1 G/50 ML IVPB IV STA (05:08)
[2023-08-25 05:11] LABS: ADD URINE CULTURE? NO (NO)
[2023-08-25] MEDS ORDERED: Zithromax 250 MG TABLET ONE (05:17)
[2023-08-25] MEDS ORDERED: ROCEPHIN 1 Gm-D5w 50 ml Bag** 1 G/50 ML IVPB IV ONE (05:18)
--- NOTE | 2023-08-25 08:47 | XRAY ---
Indication: Fever, cough, body ache, and headache. Comparison: April 03, 2023 PA/lateral chest demonstrates normal heart, lungs, and bony thorax.
== END 2023-08-25 06:05 | disposition home or self-care (01) ==
LOC: ED 02:40
DX: J10.1 Influenza due to other identified influenza virus with other respiratory manifestations (principal); J01.80 Other acute sinusitis; R51.9 Headache, unspecified; R42 Dizziness and giddiness; R19.7 Diarrhea, unspecified; R50.9 Fever, unspecified; R09.81 Nasal congestion; R05.1 Acute cough; M79.10 Myalgia, unspecified site; Z28.310 Unvaccinated for COVID-19
CPT/HCPCS: 0241U; 36415; 70450; 71046; 80053; 81001; 83605; 83735; 85025; 86308; 87651; 96360; 96365; 96374; 99284; J0696; J1885; A9270-GY